=== PATIENT | female | born 1975 | race Caucasian/White ===

== ENCOUNTER → 2020-10-05 | Outpatient (CLI) | payer BC ==
[~2020-10-05] MED LIST: DETROL LA4 PO; HAIRSKINNAILS PO; NORCO 325 MG-51 TAB PO; PHARMASSURE L-500 MG PO
== END ==
LOC: MC.RAD 09:45
DX: R92.1 Mammographic calcification found on diagnostic imaging of breast (principal)

== ENCOUNTER → 2020-11-02 | Outpatient (CLI) | payer BC | LOC: MC.RAD 13:00 | DX: N64.9 Disorder of breast, unspecified (principal); Z98.82 Breast implant status | CPT/HCPCS: C1769 ==

== ENCOUNTER 2020-11-03 07:08 | Day surgery (SDC) | payer BC ==
[~2020-11-03] VITALS: Ht 162.6 cm; Wt 120.8 kg
[2020-11-03] MEDS ORDERED: DETROL LA4 PO (07:47)
[2020-11-03] MEDS ORDERED: PHARMASSURE L-500 MG PO (07:47)
[2020-11-03 07:48] VITALS: BP 120/79; PULSE 71; TEMP 99
[2020-11-03] MEDS ORDERED: HAIRSKINNAILS PO (07:48)
[2020-11-03 09:50] VITALS: BP 106/57; PULSE 89; TEMP 99.3
--- NOTE | 2020-11-03 09:50 | NUR ---
Pt returns to [facility] from the OR, report received from BELGICA Butler and Trish Rosado CRNA. Pt awake and alert, VSS, denies pain or nausea. Call light in reach, at bedside after talking with Dr. Ayala.
[2020-11-03 10:05] VITALS: BP 120/69; PULSE 77
--- NOTE | 2020-11-03 10:05 | NUR ---
Pt awake and alert, denies needs, tolerates a muffin and water well. Denies pain but would like a pain pill before she leaves due to her long drive home.
[2020-11-03] MEDS ORDERED: NORCO 325 MG-51 TAB PO (10:10)
[2020-11-03 10:20] VITALS: BP 120/92; PULSE 68
[2020-11-03 10:35] VITALS: BP 126/85; PULSE 74
--- NOTE | 2020-11-03 10:35 | NUR ---
Pt up to the bathroom and tolerates well. IV discontinue to left wrist. Discharge instructions given to pt and her . Follow up appointment made. Pt to private car via wheelchair and left in care of her at 1045.
== END 2020-11-03 10:45 | disposition home or self-care (01) ==
LOC: SDCO 07:08
DX: D05.11 Intraductal carcinoma in situ of right breast (principal); E66.01 Morbid (severe) obesity due to excess calories; Z68.41 Body mass index [BMI] 40.0-44.9, adult; Z20.822 Contact with and (suspected) exposure to COVID-19; Z79.899 Other long term (current) drug therapy; Z80.3 Family history of malignant neoplasm of breast
CPT/HCPCS: A4648; J7120

== ENCOUNTER 2020-11-18 09:15 | Day surgery (SDC) | payer BC ==
[~2020-11-18] VITALS: Ht 162.6 cm; Wt 119.1 kg
[2020-11-18 10:32] VITALS: BP 129/64; PULSE 81; TEMP 98.9
[2020-11-18 12:05] VITALS: BP 144/76; PULSE 83
--- NOTE | 2020-11-18 12:05 | NUR ---
Patient returns to room 1 per cart from PACU accompanied by Jeni LINDO and is awake and alert. IV fluids infusing and site is free of redness. Dressing clean and dry on the right breast re-excision. Siderails up x2 and call light in reach. Spouse in room.
[2020-11-18 12:20] VITALS: BP 150/78; PULSE 83
--- NOTE | 2020-11-18 12:20 | NUR ---
Resting and offers no complaints.
[2020-11-18 12:35] VITALS: BP 150/83; PULSE 90
--- NOTE | 2020-11-18 12:35 | NUR ---
Drinking water and states that the incisional area is burning. Rates pain at 2/10. Given crackers to eat and will medicate for pain.
--- NOTE | 2020-11-18 12:36 | NUR ---
Medicated with [place] 5mg one tab for pain.
[2020-11-18 12:50] VITALS: BP 156/74; PULSE 76
--- NOTE | 2020-11-18 12:50 | NUR ---
IV discontinued and patient dresses self.
--- NOTE | 2020-11-18 12:55 | NUR ---
Dismissal instructions given and voices understanding of home cares and follow in [place].
--- NOTE | 2020-11-18 12:59 | NUR ---
Patient dismissed to home driven by spouse and taken to the front door per wheelchair and assisted into vehicle with dismissal instructions in hand.
[2020-11-18 13:12] VITALS: BP 144/76; PULSE 82; TEMP 98.8
== END 2020-11-18 12:59 | disposition home or self-care (01) ==
LOC: SDCO 09:15
DX: D05.11 Intraductal carcinoma in situ of right breast (principal)
CPT/HCPCS: A4648; J0690; J1100; J1885; J2405; J3010; J7120